=== PATIENT | female | born 1960 | race Caucasian/White ===

== ENCOUNTER → 2019-10-16 | Outpatient (CLI) | payer OTHER ==
[~2019-10-16] MED LIST: AMITRIPTYLINE H25 M2 PO; ASA81BEC PO; ELMIRON 100 MG100 M1 PO; URELLE TABLET1 TAB PO
== END ==
LOC: CAT 15:39
DX: Z13.6 Encounter for screening for cardiovascular disorders (principal); I25.10 Atherosclerotic heart disease of native coronary artery without angina pectoris; E78.00 Pure hypercholesterolemia, unspecified

== ENCOUNTER → 2019-10-16 | Outpatient (CLI) | payer OTHER | LOC: SJCVCIMAG 16:16 | PROVIDERS: ATTEND Internal Medicine Cardiovascular Disease | DX: R07.9 Chest pain, unspecified (principal); R53.83 Other fatigue; E11.9 Type 2 diabetes mellitus without complications; E78.5 Hyperlipidemia, unspecified ==